=== PATIENT | female | born 1960 | race Caucasian/White ===

== ENCOUNTER 2018-04-10 19:33 | Emergency (ER) | payer OTHER ==
[2018-04-10 20:46] LABS: ADD MAN DIFF? NO
[2018-04-10 21:03] LABS: INR 1.04; PROTIME 13.7 Sec (11.9-14.9); PT RATIO 1.1
[2018-04-10 21:04] LABS: PARTIAL THROMBOPLASTIN TIME 25.4 Sec (25.0-35.0)
[2018-04-10 21:09] LABS: ANION GAP 18 (8-16); BLOOD UREA NITROGEN 18 mg/dl (7-20); CARBON DIOXIDE 32 mmol/L (21-31); CHLORIDE 96 mmol/L (97-110); CHOL/HDL RATIO 4.8 RATIO; CHOLESTEROL 266 mg/dl (100-200); CREATININE 0.78 mg/dl (0.44-1.00); GLUCOSE 184 mg/dl (70-220); HDL CHOLESTEROL 55 mg/dl (37-92); LDL CHOLESTEROL,CALCULATED 196 mg/dl; POTASSIUM 4.3 mmol/L (3.5-5.1); SODIUM 142 mmol/L (135-144); TRIGLYCERIDES 77 mg/dl (0-149)
[2018-04-10 21:17] LABS: HEMOGLOBIN A1C 5.6 % (0-5.9)
[2018-04-10 21:19] LABS: TROPONIN-I 0.093 ng/ml (0.000-0.120)
[2018-04-10 21:27] LABS: WHITE BLOOD COUNT 12.7 10^3/ul (4.8-10.8)
[2018-04-10 21:27] LABS: BASOPHILS % 0.2 % (0.0-2.0); HEMATOCRIT 37.8 % (37.0-47.0); HEMOGLOBIN 11.9 g/dl (12.0-16.0); LYMPHOCYTES # 1.2 10^3/ul (0.8-2.9); LYMPHOCYTES % 9.6 % (15.0-51.0); MEAN CORPUSCULAR HEMOGLOBIN 28.5 pg (29.0-33.0); MEAN CORPUSCULAR HGB CONC 31.5 g/dl (32.0-37.0); MEAN CORPUSCULAR VOLUME 90.6 fl (82.0-101.0); MEAN PLATELET VOLUME 12.2 fl (7.4-10.4); MONOCYTE # 1.3 10^3/ul (0.3-0.9); MONOCYTES % 9.8 % (0.0-11.0); NEUTROPHIL # 10.2 10^3/ul (1.6-7.5); NEUTROPHILS % 79.7 % (39.0-77.0); PLATELET COUNT 110 10^3/UL (140-415); RED BLOOD COUNT 4.17 10^6/ul (4.20-5.40); RED CELL DISTRIBUTION WIDTH 13.9 % (11.5-14.5)
[2018-04-10] MEDS: ONDANSETRON 4 MG INJ IV (22:37)
[2018-04-10] MEDS: METOCLOPRAMIDE 10 MG INJ IV (22:38)
[2018-04-10] MEDS: SOD CHLORIDE 0.9% 1,000 ML IV (22:38)
[2018-04-11 00:07] LABS: AADO2 Arterial 110.4 mmHg (7.0-24.0); Allen Test ACCEPTAB; Arterial Base Excess 2.2 mmol/L (-3.0-3); Arterial Blood Gas Oxygen Sat 83.3 mmHG (95.0-98.0); Arterial COHb 0.6 % (0.0-3.0); Arterial Fraction of Oxyhgb 82.6 % (93.0-99.0); Arterial HCO3 28.3 mmol/L (22.0-26.0); Arterial MetHb 0.2 % (0.0-1.5); Arterial Total Hemglobin 14.8 g/dl (12.0-18.0); Arterial pCO2 49.5 mmhg (35-45); MODE NASAL CANNULA; Site Left Radial
[2018-04-11] MEDS: IPRATROPIUM (NEB) 0.5 MG/2.5 ML AMP HHN (00:15)
[2018-04-11] MEDS: ALBUTEROL 0.083% (NEB) 2.5 MG/3 ML AMP HHN (00:15)
[2018-04-11] MEDS ORDERED: NALOXONE (0.4 MG/ML) INJ IV (01:00)
[2018-04-11] MEDS: IOHEXOL 300MG/ML 150 ML BTL (01:11)
[2018-04-11] MEDS: SOD CHLORIDE 0.9% 100 ML (01:11)
[2018-04-11 04:50] LABS: ACETAMINOPHEN < 10.0 ug/ml (10.0-30.0)
[2018-04-11 04:50] LABS: ETHANOL < 10.0 mg/dl; SALICYLATE < 1.0 mg/dl (5.0-30.0)
== END 2018-04-11 03:27 | disposition left against medical advice (07) ==
LOC: E/R 19:33
DX: R09.02 Hypoxemia (principal); R06.03 Acute respiratory distress; F17.210 Nicotine dependence, cigarettes, uncomplicated; R07.9 Chest pain, unspecified
CPT/HCPCS: 36600; 70450; 71045; 71275; 80048; 80061; 80307; 82803; 82962; 83036; 84484; 85025; 85610; 85730; 93005; 94664; 96361; 96374; 96375; 99285-25